=== PATIENT | male | born 1985 | race Caucasian/White ===

== ENCOUNTER 2023-03-18 08:03 | Emergency (ER) | payer BC ==
[2023-03-18] MEDS ORDERED: Ketorolac 30 MG/ML SDV IM ONE (08:15)
[2023-03-18] MEDS ORDERED: Penicillin G Benzathine/Procaine 600-600 1.2 Millunits/2 ML Syringe IM ONE ×2 (08:15)
== END 2023-03-18 08:52 | disposition home or self-care (01) ==
LOC: DL.ED 08:03
DX: J02.8 Acute pharyngitis due to other specified organisms (principal); Z91.09 Other allergy status, other than to drugs and biological substances
CPT/HCPCS: 96372; 99282; 99283; J0558; J1885